=== PATIENT | male | born 1965 | race Two or more races ===

== ENCOUNTER 2018-06-29 07:46 | Day surgery (SDC) | payer BC ==
[~2018-06-29] VITALS: Ht 170.2 cm; Wt 73.5 kg
[2018-06-29] VITALS (7 sets, daily range): BP systolic 96–110; BP diastolic 54–68
[~2018-06-29 07:46] MED LIST: LIALDA1.2 GM PO; [UNRECOGNIZED DRUG - REMARK] ORAL
--- NOTE | 2018-06-29 07:55 | Anethesia Preoperative Eval ---
Anesthesia Pre-op PMH/ROS General Date of Evaluation: Jun 29, 2018 Time of Evaluation: 07:53 Anesthesiologist: dolores ASA Score: ASA 2 Mallampati Score Class I : Soft palate, uvula, fauces, pillars visible Class II: Soft palate, uvula, fauces visible Class III: Soft palate, base of uvula visible Class IV: Only hard plate visible Mallampati Classification: Class II Surgeon: negro Diagnosis: ulcerative colitis Surgical Procedure: colonoscopy Anesthesia History: none Social History: smoking - nonsmoker Family History: no anesthesia problems Allergies: Coded Allergies: NO KNOWN DRUG ALLERGIES (Verified Allergy, Unknown, 08/19/14) Medications: see eMAR Patient NPO?: Yes Past Medical History Gastrointestinal/Genitourinary: Reports: other - uclerative colitis HEENT: Reports: other - decreased visual acuity Anesthesia Pre-op Phys. Exam Physician Exam Last Vital Signs Date Time Temp Pulse Resp B/P (MAP) Pulse Ox O2 Delivery O2 Flow Rate FiO2 06/29/18 08:48 Room Air 06/29/18 08:47 97.2 59 20 109/68 100 Constitutional: NAD Neurologic: CN 2-12 intact Cardiovascular: RRR Respiratory: CTA Gastrointestinal: S/NT/ND Airway Exam Mallampati Score: Class II MO: limited Neck: flexible TMD: 2fb ROM: limited Anesthesia Pre-op A/P Studies Pre-op Studies: EKG - nsr Risk Assessment & Plan Assessment: asa2 Plan: mac Status Change Before Surgery: No Pre-Antibiotics Drug: Katerine Isidro MD Jun 29, 2018 07:55
[2018-06-29] MEDS ORDERED: Atropine Inj 1mg/10ml Syr IV PRN (08:00)
[2018-06-29] MEDS ORDERED: DiphenhydrAMINE 50mg/ml Inj IVP PRN (08:00)
[2018-06-29] MEDS ORDERED: fentaNYL 100 mcg/2 mL IV PRN (08:00)
[2018-06-29] MEDS ORDERED: Midazolam 2mg/2ml Inj IVP PRN (08:00)
--- NOTE | 2018-06-29 09:43 | Short Stay Surgery H&P ---
History of Present Illness History of Present Illness Chief Complaint uc HPI Frances Diaz is a 52 year old male who was admitted on for Ulcerative Colitis Patient History Allergies: Coded Allergies: NO KNOWN DRUG ALLERGIES (Verified Allergy, Unknown, 08/19/14) PAST MEDICAL HISTORY: (1) Ulcerative colitis Medication History Scheduled Mesalamine (Lialda), 1.2 GM PO DAILY, (Reported) [Colitis Pill], 100 MG ORAL DAILY, (Reported) Review of Systems Cardiovascular: Reports: no symptoms, peripheral vascular disease Respiratory: Reports: no symptoms Skeletal: Reports: no symptoms Gastrointestinal: Reports: no symptoms Genitourinary: Reports: no symptoms Neurologic: Reports: no symptoms Endocrine: Reports: no symptoms Hematologic: Reports: no symptoms Physical Exam Vital Signs Last Vital Signs Date Time Temp Pulse Resp B/P (MAP) Pulse Ox O2 Delivery O2 Flow Rate FiO2 06/29/18 08:48 Room Air 06/29/18 08:47 97.2 59 20 109/68 100 Skin: normal HENT: normal Heart: normal Lungs: normal Abdomen: normal Extremities: normal Plan Plan of Care colonoscopy Attestation Are the patient's medical conditions optimized for surgery? Attestation Response: yes Severiano Ceballos MD Jun 29, 2018 09:43
--- NOTE | 2018-06-29 09:43 | Pre-Procedure Note/Attestation ---
Pre-Procedure Note/Attestation Complete Prior to Procedure Planned Procedure: not applicable Procedure Narrative: colonoscopy Indications for Procedure Pre-Operative Diagnosis: uc Attestation I attest that I discussed the nature of the procedure; its benefits; risks and complications; and alternatives (and the risks and benefits of such alternatives ), prior to the procedure, with the patient (or the patient's legal premium representative). I attest that, if there was a reasonable possibility of needing a blood transfusion, the patient (or the patient's legal premium representative) was given the [facility] standardized written summary, pursuant to the [place] Blood Safety Act ([place] Health and Safety Code # 1645, as amended). I attest that I re-evaluated the patient just prior to the surgery and that there has been no change in the patient's H&P, except as documented below: Severiano Ceballos MD Jun 29, 2018 09:43
--- NOTE | 2018-06-29 10:29 | Endoscopy Procedure Note ---
Endoscopy Procedure Note General Indication for Procedure: uc Procedures Performed: colonoscopy Operative Findings/Diagnosis: colitis Specimen: yes Pt Tolerated Procedure Well: Yes Estimated Blood Loss: none Anesthesia Anesthesiologist: dolores Anesthesia: MAC Inserted Devices Implant(s) used?: No Quality Quality of Bowel Preparation: Good Did scope reach the cecum?: Yes Was there any complications?: No GI Core Measures 50 yrs or older w/o bx or poly: No 10yrs. F/U not recommended: Yes If not recommended, why?: Above average risk 10 yrs. F/U needed: Yes 18 years or older w/prev. colo: Yes <3yrs. since last colonoscopy: No Severiano Ceballos MD Jun 29, 2018 10:29
--- NOTE | 2018-06-29 11:04 | Immediate Post-Op Evaluation ---
Immediate Post-Op Evalulation Immediate Post-Op Evalulation Procedure: colonoscopy w/bx Date of Evaluation: Jun 29, 2018 Time of Evaluation: 10:51 IV Fluids: 325ml 0.9ns Blood Products: none Estimated Blood Loss: negligible Blood Pressure Systolic: 98 Blood Pressure Diastolic: 54 Pulse Rate: 57 Respiratory Rate: 18 O2 Sat by Pulse Oximetry: 98 Temperature (Fahrenheit): 97.4 Pain Score (1-10): 0 Nausea: No Vomiting: No Complications none Patient Status: awake, reacts, patent Hydration Status: adequate Drug: Katerine Isidro MD Jun 29, 2018 11:04
--- NOTE | 2018-06-29 11:05 | 48 Hour Post Anesthesia Eval ---
Post Anesthesia Evaluation Procedure: colonoscopy w/bx Date of Evaluation: Jun 29, 2018 Time of Evaluation: 10:53 Blood Pressure Systolic: 96 0: 66 Pulse Rate: 55 Respiratory Rate: 18 Temperature (Fahrenheit): 97.4 O2 Sat by Pulse Oximetry: 98 Airway: patent Nausea: No Vomiting: No Pain Intensity: 0 Hydration Status: adequate Cardiopulmonary Status: stable Mental Status/LOC: patient returned to baseline Post-Anesthesia Complications: none Follow-up care needed: N/A Katerine Rowe MD Jun 29, 2018 11:05
--- NOTE | 2018-06-30 13:51 | Procedure Note ---
DATE OF PROCEDURE: 06/29/2018 SURGEON: Severiano Ceballos M.D. ANESTHESIOLOGIST: Dr. Junior. PROCEDURE: Colonoscopy with biopsy. ANESTHESIA: Per Dr. Junior. INSTRUMENT: Olympus adult flexible colonoscope. The procedure, risks, benefits, and possible consequences, including hemorrhage, aspiration, perforation and infection, and alternative treatments, were explained to the patient/legal guardian by Dr. Severiano Ceballos and the patient/legal guardian understood and accepted these risks. PROCEDURE IN DETAIL: After informed consent was obtained and the patient was adequately sedated, first rectal exam was performed, which was normal. Then, the scope was advanced from the rectum into the cecum and then subsequently to the terminal ileum. Quality of prep was good. The patient had some inflammation in the terminal ileum, which was biopsied. Overall, the colon was very shortened, most probably from chronic colitis. There were pseudopolyps throughout the colon. There was evidence of burnout mucosa from most probably chronic colitis. There was evidence of active colitis in the ascending colon. There was evidence of ulceration in that area suggestive of active colitis. Biopsy from ascending colon, transverse colon, sigmoid colon, and rectum was obtained. Retroflexion of rectum showed evidence of internal hemorrhoids. SUMMARY OF FINDINGS: 1. Possible backwash ileitis. 2. Active colitis in the ascending colon. 3. Burnout colon with shortened colon and fibrotic changes throughout the colonic mucosa suggestive of chronic colitis. 4. Multiple pseudopolyps. 5. Internal hemorrhoids. RECOMMENDATIONS: Follow up biopsy results and treat accordingly. We will have the patient to call the office regarding discussion regarding his medication. He stops his on his own and is currently only on mesalamine, most probably that is why he has recurrent colitis. We will talk to him regarding the plans of treatment and his options. Severiano Ceballos M.D. DR: VIANNEY JOB#: [id number] CC:
== END 2018-06-29 11:40 | disposition home or self-care (01) ==
LOC: GAS 07:46
DX: K51.90 Ulcerative colitis, unspecified, without complications (principal); K64.8 Other hemorrhoids; K63.5 Polyp of colon
CPT/HCPCS: 93005; 94003; 94150

== ENCOUNTER 2018-07-22 14:17 | Outpatient (CLI) | payer BC ==
[2018-07-24] MEDS ORDERED: UCERIS9 MG PO (11:39)
== END 2018-07-22 16:17 | disposition home or self-care (01) ==
LOC: LAB 14:17
DX: K51.90 Ulcerative colitis, unspecified, without complications (principal); R19.7 Diarrhea, unspecified; K92.2 Gastrointestinal hemorrhage, unspecified
CPT/HCPCS: 87324